=== PATIENT | male | born 1975 | race African-American/Black ===

== ENCOUNTER 2016-11-25 20:17 | Emergency (ER) | payer OTHER ==
[~2016-11-25] VITALS: Ht 177.8 cm; Wt 78.0 kg
[2016-11-25 20:20] VITALS: Ht 177.8 cm; Wt 78.0 kg
[2016-11-25] MEDS ORDERED: IBUPROFEN 800 MG TAB PO ONE (20:30)
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
[2016-11-25 22:25] VITALS: BP 125/78; PULSE 92; RESP 16
--- NOTE | 2016-11-26 00:15 | RADRPT ---
PROCEDURE: XR Forearm. CLINICAL INDICATION: Trauma. Pain. TECHNIQUE: AP and lateral views of the left forearm were obtained. COMPARISON: No prior studies are available for comparison. FINDINGS: There is acute fracture of the distal ulnar diaphysis with slight impaction. No other fractures walter ntified. Joint relationships are maintained. Bone mineralization is within normal limits. Soft ti ssues are unremarkable. IMPRESSION: Distal ulnar diaphyseal fracture. RPTAT: HMVK .Yosi Avendaño MD, Date Time Electronically viewed and signed by .Yosi Avendaño MD, on 11/26/2016 00:15 .K/
== END 2016-11-25 22:28 ==
LOC: E/R 20:17
DX: S52.602A Unspecified fracture of lower end of left ulna, initial encounter for closed fracture (principal); F17.210 Nicotine dependence, cigarettes, uncomplicated; Y08.89XA Assault by other specified means, initial encounter
CPT/HCPCS: 73090